=== PATIENT | female | born 1980 | race Caucasian/White ===

== ENCOUNTER 2022-03-28 14:01 | Emergency (ER) | payer OTHER, SELFPAY ==
[2022-03-28 14:08] VITALS: BP 138/90; PULSE 80; RESP 15; TEMP 36.6; O2SAT 100; BMI 25.6
--- NOTE | 2022-03-28 14:11 | DI.RAD.S_ITS ---
PROCEDURE: XR CHEST 1V INDICATIONS: chest pain TECHNIQUE: One view of the chest was acquired. COMPARISON: None. FINDINGS: Surgical changes and devices: None. Lungs and pleura: Lungs are clear. No pleural effusions or pneumothorax. Mediastinum: Mediastinal contours appear normal. Heart size is normal. Bones and chest wall: No suspicious bony lesions. Overlying soft tissues appear unremarkable. IMPRESSION: No acute process. Dictated by: Lucia Muñiz M.D. on 03/28/2022 at 14:57 Approved by: Lucia Muñiz M.D. on 03/28/2022 at 14:57
--- NOTE | 2022-03-28 14:40 | PC.NURSE ---
Pt very anxious/upset in the triage room, states hands/feet tingly, clinching hands, breathing fast, physician reviewed EKG, line/labs in triage.
[2022-03-28 15:04] LABS: Add Manual Diff / Slide Review NO; Basophils Absolute Auto 100 /uL (0-100); Basophils Percent Auto 0.7 % (0-2); Eosinophils Absolute Auto 100 /uL (0-450); Eosinophils Percent Auto 1.2 % (2-4); Hematocrit 38.8 % (36-46); Hemoglobin 13.6 g/dL (12.0-16.0); Lymphocytes Absolute Auto 2600 /uL (1100-4500); Lymphocytes Percent Auto 30.9 % (25-40); Mean Corpuscular HGB Conc 34.9 % (30-36); Mean Corpuscular Hemoglobin 33.3 PG (26-34); Mean Corpuscular Volume 95.5 fL (80-100); Monocytes Absolute Auto 400 /uL (0-900); Monocytes Percent Auto 4.9 % (3-14); Neutrophils Absolute Auto 5300 /uL (1500-7000); Neutrophils Percent Auto 62.3 % (50-75); Platelet Count 311 X10^3/uL (150-400); Red Blood Cell Count 4.07 X10^6/uL (4.0-5.2); Red Cell Distribution Width 12.4 % (11.6-14.8); White Blood Cell Count 8.5 X10^3/uL (4.5-11.0)
[2022-03-28 15:09] LABS: Alanine Aminotransferase 14 IU/L (<35); Albumin Globulin Ratio 1.9 (1.0-2.8); Alkaline Phosphatase 52 U/L (38-126); Aspartate Aminotransferase 28 IU/L (14-36); BUN Creatinine Ratio 21.7 (6-22); Bilirubin Total 0.4 mg/dL (0.2-1.3); Blood Urea Nitrogen 15 mg/dL (7-17); Calcium 8.9 mg/dL (8.4-10.2); Carbon Dioxide 25 mmol/L (22-32); Chloride 101 mmol/L (98-107); Creatine Kinase 97 U/L (30-135); Estimated Glomerular Filt Rate > 60 mL/min (>60); Globulin 2.6 g/dL (1.7-4.1); Glucose 175 mg/dL (70-100); HEMOLYSIS < 15 (0-50); Lipase 172 U/L (23-300); Magnesium 1.7 mg/dL (1.6-2.3); Potassium 3.3 mmol/L (3.4-5.1); Sodium 135 mmol/L (137-145); Total Protein 7.6 g/dL (6.3-8.2)
[2022-03-28 15:20] LABS: Troponin I < 0.012 ng/mL (0.01-0.034)
[2022-03-28 18:00] VITALS: BP 107/73; PULSE 69; RESP 18; O2SAT 99
--- NOTE | 2022-03-28 18:11 | ED_ITS ---
HPI - Chest Pain General Chief Complaint: Chest Pain Stated Complaint: CHEST PAIN Time Seen by Provider: 03/28/22 14:31 Source: patient Mode of arrival: Ambulatory Limitations: no limitations History of Present Illness HPI narrative: 41-year-old female smoker without significant medical history presents with a chief complaint of retrosternal chest pressure that started about 4 or 5 hours prior to her arrival and is absent of any obvious provocation, palliation or radiation. She states that she admittedly felt anxious and developed subsequent shortness of breath and hyperventilation along with numbness and tingling in her fingers and around her lips. She denies any obvious provocation of these symptoms, she denies any dizziness or lightheadedness. She is had no cough, fever or chills. She denies nausea, vomiting or diarrhea. She is had no recent travel or injury. She states that she is been having these episodes off and on for the past month or so. She states that she ran 4 miles this morning and had no symptoms whatsoever and felt great. Related Data Allergies Allergy/AdvReac Type Severity Reaction Status Date / Time No Known Drug Allergies Allergy Verified 03/28/22 14:08 Review of Systems Review of Systems Narrative: GENERAL: See HPI HEENT: Denies sinus pain, ear pain, sore throat, difficulty swallowing, dizziness. RESPIRATORY: See HPI CARDIOVASCULAR: See HPI GASTROINTESTINAL: Denies nausea, vomiting, abdominal pain, diarrhea, constipation, melena. : Denies dysuria, frequency, incontinence, hematuria, urinary retention. MUSCULOSKELETAL: denies weakness, joint pain, or bony pain SKIN: Denies rash, skin lesions, or other NEUROLOGIC: Denies weakness, headache, numbness, change in speech, confusion, seizures, incoordination. PSYCHIATRIC: No concerning psychosocial issues. 12 point review of systems is negative except for those stated above Patient History Social History Smoking Status: Current some day smoker Smoking Status: Current some day smoker alcohol intake frequency: holidays/special occasions only Substance Use Type: does not use Exam Narrative Exam Narrative: GENERAL: [41] year old patient appears stated age. Well-developed patient, in mild distress. HEAD: Atraumatic. Normocephalic. EYES: Pupils equal round and reactive. Extraocular motions intact. No scleral icterus. No injection or drainage. ENT: Nose without bleeding, purulent drainage. Throat without erythema, tons illar hypertrophy or exudate. Airway patent. NECK: Trachea midline. Non tender CARDIOVASCULAR: Regular rate and rhythm without murmurs, gallops, or rubs. RESPIRATORY: Clear to auscultation. Breath sounds equal bilaterally. No wheezes, rales, or rhonchi. GASTROINTESTINAL: Abdomen soft, non-tender, nondistended. EXTREMITIES: No edema or joint tenderness. BACK: Nontender without deformity or crepitance. No flank tenderness. NEURO: AOx3. SKIN: No rash or erythema of visible areas Initial Vital Signs Initial Vital Signs: Vital Signs Temperature 97.9 F 03/28/22 14:08 Pulse Rate 80 03/28/22 14:08 Respiratory Rate 15 03/28/22 14:08 Blood Pressure 138/90 03/28/22 14:08 Pulse Oximetry 100 03/28/22 14:08 Oxygen Delivery Method 03/28/22 14:08 Scores HEART Score Heart Score history: Slightly Suspicious Heart Score EKG: Normal Heart Score Age: < 45 years old Heart Score risk factors: No known risk factors Heart Score troponin: < or = to normal limit Heart Score Total: 0 Course Orders Ordered: ED Orders 03/28/22 14:11 XR chest 1V Stat EKG-12 Lead Stat 03/28/22 14:28 CRP [C-Reactive Protein Quant] Stat Complete Blood Count AUTO DIFF Stat Comprehensive Metabolic Panel Stat D Dimer Stat ESR [Erythrocyte Sedimentation Rate] Stat Lipase Stat Magnesium Stat Troponin & CK Cardiac Panel Stat Vital Signs Vital signs: Vital Signs - 8 hr 03/28/22 14:08 03/28/22 18:00 03/28/22 18:58 Temperature 97.9 F Pulse Rate 80 69 75 Respiratory Rate 15 18 14 Blood Pressure 138/90 107/73 Pulse Oximetry 100 99 99 Oxygen Delivery Method Room Air Room Air 03/28/22 19:00 03/28/22 19:00 03/28/22 19:30 Temperature Pulse Rate 65 Respiratory Rate 11 L Blood Pressure 121/75 111/84 Pulse Oximetry 100 Oxygen Delivery Method 03/28/22 19:30 Temperature Pulse Rate 69 Respiratory Rate 23 Blood Pressure Pulse Oximetry 98 Oxygen Delivery Method Room Air MDM - Chest Pain Lab Data Result diagrams: 03/28/22 14:28 03/28/22 14:28 Labs: Lab Results 03/28/22 03/28/22 03/28/22 Range/Units 14:28 14:28 14:28 WBC 8.5 (4.5-11.0) X10^3/uL RBC 4.07 (4.0-5.2) X10^6/uL Hgb 13.6 (12.0-16.0) g/dL Hct 38.8 (36-46) % MCV 95.5 (80-100) fL MCH 33.3 (26-34) PG MCHC 34.9 (30-36) % RDW 12.4 (11.6-14.8) % Plt Count 311 (150-400) X10^3/uL Neut % (Auto) 62.3 (50-75) % Lymph % (Auto) 30.9 (25-40) % [place] % (Auto) 4.9 (3-14) % Eos % (Auto) 1.2 L (2-4) % Baso % (Auto) 0.7 (0-2) % Neut # (Auto) 5300 (9482-1512) /uL Lymph # (Auto) 2600 (1941-5862) /uL [place] # (Auto) 400 (0-900) /uL Eos # (Auto) 100 (0-450) /uL Baso # (Auto) 100 (0-100) /uL ESR 13 (0-20) MM/HR D-Dimer (<230) ng/mL Sodium 135 L (137-145) mmol/L Potassium 3.3 L (3.4-5.1) mmol/L Chloride 101 (98-107) mmol/L Carbon Dioxide 25 (22-32) mmol/L BUN 15 (7-17) mg/dL Creatinine 0.69 (0.52-1.04) mg/dL Estimated GFR > 60 (>60) mL/min BUN/Creatinine Ratio 21.7 (6-22) Glucose 175 H (70-100) mg/dL Calcium 8.9 (8.4-10.2) mg/dL Magnesium 1.7 (1.6-2.3) mg/dL Total Bilirubin 0.4 (0.2-1.3) mg/dL AST 28 (14-36) IU/L ALT 14 (<35) IU/L Alkaline Phosphatase 52 (38-126) U/L Total Creatine Kinase 97 (30-135) U/L CK-MB (CK-2) TNP CK-MB (CK-2) Rel Index TNP Troponin I < 0.012 (0.01-0.034) ng/mL C-Reactive Protein (<1.0) mg/dL Total Protein 7.6 (6.3-8.2) g/dL Albumin 5.0 (3.5-5.0) g/dL Globulin 2.6 (1.7-4.1) g/dL Albumin/Globulin Ratio 1.9 (1.0-2.8) Lipase 172 (23-300) U/L 03/28/22 03/28/22 Range/Units 14:28 14:28 WBC (4.5-11.0) X10^3/uL RBC (4.0-5.2) X10^6/uL Hgb (12.0-16.0) g/dL Hct (36-46) % MCV (80-100) fL MCH (26-34) PG MCHC (30-36) % RDW (11.6-14.8) % Plt Count (150-400) X10^3/uL Neut % (Auto) (50-75) % Lymph % (Auto) (25-40) % [place] % (Auto) (3-14) % Eos % (Auto) (2-4) % Baso % (Auto) (0-2) % Neut # (Auto) (9402-4902) /uL Lymph # (Auto) (9793-5589) /uL [place] # (Auto) (0-900) /uL Eos # (Auto) (0-450) /uL Baso # (Auto) (0-100) /uL ESR (0-20) MM/HR D-Dimer < 200 (<230) ng/mL Sodium (137-145) mmol/L Potassium (3.4-5.1) mmol/L Chloride (98-107) mmol/L Carbon Dioxide (22-32) mmol/L BUN (7-17) mg/dL Creatinine (0.52-1.04) mg/dL Estimated GFR (>60) mL/min BUN/Creatinine Ratio (6-22) Glucose (70-100) mg/dL Calcium (8.4-10.2) mg/dL Magnesium (1.6-2.3) mg/dL Total Bilirubin (0.2-1.3) mg/dL AST (14-36) IU/L ALT (<35) IU/L Alkaline Phosphatase (38-126) U/L Total Creatine Kinase (30-135) U/L CK-MB (CK-2) CK-MB (CK-2) Rel Index Troponin I (0.01-0.034) ng/mL C-Reactive Protein < 0.5 (<1.0) mg/dL Total Protein (6.3-8.2) g/dL Albumin (3.5-5.0) g/dL Globulin (1.7-4.1) g/dL Albumin/Globulin Ratio (1.0-2.8) Lipase (23-300) U/L Imaging Data Chest x-ray: Radiologist's Impression: [address] [address] XRay Report Signed Patient: Pura Escudero MR#: [id number] : 1980 Acct:[id number] Age/Sex: 41 / F Date of Service: 03/28/22 Loc: ED Accession Number: [id number] ?? Procedure: XR chest 1V Ordering Provider: Monie Washburn D.O. PROCEDURE:? XR CHEST 1V ? INDICATIONS:? chest pain ? TECHNIQUE:? One view of the chest was acquired.? ? COMPARISON:? None. ? FINDINGS:? ? Surgical changes and devices:? None.? ? Lungs and pleura:? Lungs are clear.? No pleural effusions or pneumothorax.? ? Mediastinum:? Mediastinal contours appear normal.? Heart size is normal.? ? Bones and chest wall:? No suspicious bony lesions.? Overlying soft tissues appear unremarkable.? ? IMPRESSION:? No acute process. ? ? Dictated by: Lucia Muñiz M.D. on 03/28/2022 at 14:57 ? ? Approved by: Lucia Muñiz M.D. on 03/28/2022 at 14:57? ECG Data Interpretation: [1421] EKG is normal sinus rhythm rate [76 ] and free of any signs of ischemia or ectopy. No ST segmental elevation or depression. No T wave inversions MDM Narrative Medical decision making narrative: Multiple etiologies for patient's symptoms considered including: [Cardiac ischemia versus pulmonary embolism versus arrhythmia versus pneumonia versus other Multiple causes of chest pain considered including SC, PE, pneumothorax, pneumonia, aortic dissection, and pleurisy. Patient reports no radiation, no diaphoresis, no provocation with exertion, and no vomiting] Patient's symptoms improved over duration of stay with out any specific interventions Findings and discharge diagnosis discussed with patient/family followed by verbalization of understanding Return precautions discussed with patient/family whom verbalize understanding. Discharge Plan Departure Patient Disposition: Home Clinical Impression: Atypical chest pain Instructions: DI for Atypical Chest Pain Activity Restrictions/Additional Instructions: *You have been diagnosed with [atypical chest pain] *What to do: *Please continue to take your regular medications as directed. [ ] New medication prescriptions sent to your pharmacy: [ ] [ ] New medication written as a paper prescription [ x] No new medications given *Please follow up with your primary care provider in 2-3 days, call for an appointment. Let them know you were seen in the Emergency Department and that we ask that you be seen in follow up. We will electronically transmit a record of today's note if your PCP is in our system *If you do not have a primary care provider please contact the [facility] Resource line at [phone]. They will ask some questions about your medical history and help get you set up with a doctor in the community. *Return to Emergency Department if you should have any new, worsening or concerning symptoms, such as [fever greater than 101 F, shaking chills, worsening pain, persistent vomiting or other bothersome symptoms] Referrals: Le Driver FNP-BC [Primary Care Provider] - Visit Report Forms: Patient Portal/API
[2022-03-28 18:58] VITALS: PULSE 75; RESP 14; O2SAT 99
[2022-03-28 19:00] VITALS: BP 121/75; PULSE 65; RESP 11; O2SAT 100
[2022-03-28 19:09] LABS: C-Reactive Protein Quant < 0.5 mg/dL (<1.0)
[2022-03-28 19:10] LABS: D Dimer < 200 ng/mL (<230)
[2022-03-28 19:30] VITALS: BP 111/84; PULSE 69; RESP 23; O2SAT 98
[2022-03-28 19:30] LABS: Erythrocyte Sedimentation Rate 13 MM/HR (0-20)
== END 2022-03-28 19:49 | disposition home or self-care (01) ==
PROVIDERS: Emergency Medicine; Emergency Provider Emergency Medicine; PCP Nurse Practitioner Family
DX: R07.89 Other chest pain (principal)
CPT/HCPCS: 36415; 71045; 80053; 82550; 83690; 83735; 84484; 85025; 85379; 85651; 86140; 93005; 99284